=== PATIENT | female | born 1935 | race Caucasian/White ===

== ENCOUNTER 2017-12-29 15:46 | Emergency (ER) | payer OTHER ==
[~2017-12-29] VITALS: Ht 154.9 cm; Wt 61.2 kg
[~2017-12-29 15:46] MED LIST: CLONAZEPAM2 MG PO; LIPITOR20 MG; NABUMETONE500 MG PO; ORPH100T PO; OSEL75CA PO; PERCOCET 5/3251 TAB PO; SYNTHROID100 MCG PO; TUSSI PRES-B L120 M1 PO; VASOTEC10 MG NGT; ZANTAC15 MG/ML PO; [UNRECOGNIZED DRUG - OTHER]
== END 2017-12-30 11:05 | disposition home or self-care (01) ==
LOC: ER
DX: S01.521A Laceration with foreign body of lip, initial encounter (principal); S81.822A Laceration with foreign body, left lower leg, initial encounter; S00.83XA Contusion of other part of head, initial encounter; W18.39XA Other fall on same level, initial encounter; Y93.89 Activity, other specified; Y92.090 Kitchen in other non-institutional residence as the place of occurrence of the external cause; Y99.8 Other external cause status; R55 Syncope and collapse

== ENCOUNTER → 2018-01-01 | Emergency (ER) | payer OTHER ==
[~2018-01-01] VITALS: Ht 154.9 cm; Wt 60.8 kg
== END | disposition home or self-care (01) ==
LOC: ER 08:35
DX: S22.31XA Fracture of one rib, right side, initial encounter for closed fracture (principal); R07.89 Other chest pain; W18.09XA Striking against other object with subsequent fall, initial encounter; Y93.89 Activity, other specified; Y92.018 Other place in single-family (private) house as the place of occurrence of the external cause; Y99.8 Other external cause status

== ENCOUNTER 2018-01-09 07:46 | Emergency (ER) | payer OTHER ==
[~2018-01-09] VITALS: Ht 154.9 cm; Wt 60.8 kg
== END 2018-01-09 10:36 | disposition home or self-care (01) ==
LOC: ER 07:46
DX: Z48.02 Encounter for removal of sutures (principal); G89.11 Acute pain due to trauma; M54.89 Other dorsalgia

== ENCOUNTER 2018-11-10 07:24 | Outpatient (CLI) | payer OTHER | END 2018-11-10 08:00 | disposition home or self-care (01) | LOC: NUCLEAR 07:24 | DX: R07.89 Other chest pain (principal); I11.9 Hypertensive heart disease without heart failure | CPT/HCPCS: 78452; 93017; A9500; J0153 ==